=== PATIENT | male | born 1960 ===

== ENCOUNTER 2018-03-03 15:46 | Observation (INO) | payer BC ==
[2018-03-03] MEDS ORDERED: Sodium Chloride 0.9% 1,000 ML IV ONE ×2 (16:41→20:30)
[2018-03-03] MEDS ORDERED: Sodium Chloride 0.9% 1,000 ML ONE ×2 (16:50→20:33)
[2018-03-03 17:10] LABS: BASO % 0.2 % (0.0-2.0); EOS % 0.5 % (0.0-4.0); HEMOGLOBIN 15.6 g/dL (12.0-18.0); LYMPH # 0.8 K/uL (1.0-4.3); LYMPH % 12.9 % (20.0-40.0); MEAN CELL VOLUME 88.7 fL (80.0-94.0); MEAN CORPUSCULAR HEMOGLOBIN 30.4 pg (27.0-31.0); MEAN CORPUSCULAR HGB CONC 34.3 g/dL (33.0-37.0); MEAN PLATELET VOLUME 8.7 fL (7.2-11.7); MONO # 1.4 K/uL (0.0-0.8); MONO % 22.7 % (0.0-10.0); NEUT % 63.7 % (50.0-75.0); NRBC % 0.2 % (0.0-2.0); PLATELET COUNT 352 K/uL (130-400); RBC 5.14 Mil/uL (4.40-5.90); WHITE BLOOD COUNT 6.2 K/uL (4.8-10.8)
[2018-03-03 17:10] LABS: URINE BACTERIA RARE (<OCC); URINE BILIRUBIN NEGATIVE (NEGATIVE); URINE BLOOD 1+ (NEGATIVE); URINE CLARITY Hazy (Clear); URINE COLOR Amber (YELLOW); URINE GLUCOSE (UA) NORMAL (Normal); URINE HYALINE CAST 0-2 /lpf (0-2); URINE LEUKOCYTE ESTERASE NEG Leu/uL (Negative); URINE PROTEIN 2+ mg/dL (NEGATIVE); URINE UROBILINOGEN NORMAL mg/dL (0.2-1.0)
[2018-03-03 17:24] LABS: ALB/GLOB RATIO 1.3 (1.0-2.1); ALBUMIN 4.4 g/dL (3.5-5.0); ALT/SGPT 43 U/L (21-72); AST/SGOT 29 U/L (17-59); BLOOD UREA NITROGEN 24 mg/dL (9-20); GFR AFRICAN-AMERICAN > 60; GFR NON-AFRICAN AMERICAN > 60; LIPASE 52 U/L (23-300)
--- NOTE | 2018-03-03 17:38 | C.PDOC ---
History Of Present Illness 58 year old male presents to ED for evaluation of diffuse abdominal pain associated with vomiting and diarrhea for the last 4 days. Notes vomiting has improved but diarrhea still persists. Denies blood in stool or vomit, dysuria, hematuria, frequency, back pain, fever, chills, chest pain, shortness of breath , headache, dizziness, or any other associated symptoms at this time. Time Seen by Provider: 03/03/18 16:40 Chief Complaint (Nursing): Abdominal Pain History Per: Patient History/Exam Limitations: no limitations Onset/Duration Of Symptoms: Days Current Symptoms Are (Timing): Still Present Location Of Pain/Discomfort: Diffuse Radiation Of Pain To:: None Quality Of Discomfort: "Pain" Associated Symptoms: Nausea, Vomiting, Diarrhea. denies: Loss Of Appetite, Back Pain, Chest Pain, Constipation, Urinary Symptoms Exacerbating Factors: None Alleviating Factors: None Recent travel outside of the [place]: No Additional History Per: Patient Past Medical History Reviewed: Historical Data, Nursing Documentation, Vital Signs Vital Signs: Last Vital Signs Temp 99.5 F 03/03/18 18:23 Pulse 84 03/03/18 18:23 Resp 20 03/03/18 15:58 BP 145/77 03/03/18 18:23 Pulse Ox 96 03/03/18 18:23 Family History: States: Unknown Family Hx - Social History Hx Alcohol Use: No Hx Substance Use: No Review Of Systems Except As Marked, All Systems Reviewed And Found Negative. Constitutional: Negative for: Fever, Chills Cardiovascular: Negative for: Chest Pain, Palpitations Respiratory: Negative for: Shortness of Breath Gastrointestinal: Positive for: Nausea, Vomiting, Abdominal Pain, Diarrhea. Negative for: Melena, Hematochezia, Hematemesis Genitourinary: Negative for: Dysuria, Frequency, Hematuria Musculoskeletal: Negative for: Back Pain Neurological: Negative for: Headache, Dizziness Physical Exam - Physical Exam Appears: Non-toxic, No Acute Distress Skin: Normal Color, Warm, Dry Head: Atraumatic, Normacephalic Eye(s): bilateral: Normal Inspection Oral Mucosa: Moist Neck: Normal ROM, Supple Chest: Symmetrical, No Tenderness Cardiovascular: Rhythm Regular, No Murmur Respiratory: Normal Breath Sounds, No Rales, No Rhonchi, No Wheezing Gastrointestinal/Abdominal: Bowel Sounds, Soft, No Tenderness, No Guarding, No Rebound Back: No CVA Tenderness Extremity: Normal ROM Neurological/Psych: Oriented x3, Normal Speech, Normal Cognition ED Course And Treatment - Laboratory Results Result Diagrams: 03/03/18 16:56 03/03/18 16:56 O2 Sat by Pulse Oximetry: 97 (RA) Pulse Ox Interpretation: Normal Medical Decision Making Medical Decision Making: Plan: * Blood work * Urinalysis * Abd & Pelvis CT * IV fluids Disposition - Disposition Disposition Time: 18:47 Condition: STABLE Forms: [employer] (Czech) - Clinical Impression Clinical Impression: Abdominal pain - PA / QA AUDITOR / Resident Statement MD/DO has reviewed & agrees with the documentation as recorded. - Scribe Statement The provider has reviewed the documentation as recorded by the Scribe KP All medical record entries made by the Scribe were at my direction and personally dictated by me. I have reviewed the chart and agree that the record accurately reflects my personal performance of the history, physical exam, medical decision making, and the department course for this patient. I have also personally directed, reviewed, and agree with the discharge instructions and disposition. Physician Patient Turnover Patient Signed Over To: Eriberto Turcios Handoff Comments: Pending CT scan and disposition
[2018-03-03] MEDS ORDERED: Iodixanol 320 MG/ML 100 ML BOTTLE IV ONE (17:45)
[2018-03-03 19:30] LABS: BANDS 13 % (0-2); LYMPHOCYTE 14 % (20-40); MONOCYTE 25 % (0-10); NEUTROPHIL 48 % (50-75); TOTAL CELLS COUNTED 100
[2018-03-03 19:31] LABS: PLATELET ESTIMATE NORMAL (NORMAL)
[2018-03-03 21:13] LABS: BASO % 0.4 % (0.0-2.0); EOS # 0.1 K/uL (0.0-0.7); EOS % 0.9 % (0.0-4.0); LYMPH # 1.2 K/uL (1.0-4.3); LYMPH % 19.9 % (20.0-40.0); MEAN CELL VOLUME 89.1 fL (80.0-94.0); MEAN CORPUSCULAR HEMOGLOBIN 31.1 pg (27.0-31.0); MEAN CORPUSCULAR HGB CONC 34.9 g/dL (33.0-37.0); MEAN PLATELET VOLUME 8.3 fL (7.2-11.7); MONO # 1.4 K/uL (0.0-0.8); MONO % 23.4 % (0.0-10.0); NEUT # 3.4 K/uL (1.8-7.0); NEUT % 55.4 % (50.0-75.0); NRBC % 0.1 % (0.0-2.0); PLATELET COUNT 332 K/uL (130-400); RED CELL DISTRIBUTION WIDTH 13.7 % (11.5-14.5); WHITE BLOOD COUNT 6.1 K/uL (4.8-10.8)
[2018-03-03 21:26] LABS: ALB/GLOB RATIO 1.3 (1.0-2.1); ALBUMIN 3.6 g/dL (3.5-5.0); ALT/SGPT 39 U/L (21-72); AST/SGOT 18 U/L (17-59); BLOOD UREA NITROGEN 19 mg/dL (9-20); CALCIUM 8.4 mg/dl (8.6-10.4); GFR AFRICAN-AMERICAN > 60; GFR NON-AFRICAN AMERICAN > 60
[2018-03-03] MEDS ORDERED: Potassium Chloride 10 mEq ER Tab PO STA (21:52)
[2018-03-03] MEDS ORDERED: Potassium Chloride 20 mEq ER Tab PO ONE (22:03)
[2018-03-03 22:05] LABS: BANDS 17 % (0-2); LYMPHOCYTE 24 % (20-40); MONOCYTE 16 % (0-10); NEUTROPHIL 43 % (50-75); PLATELET ESTIMATE NORMAL (NORMAL); TOTAL CELLS COUNTED 100
[2018-03-03] MEDS ORDERED: Ciprofloxacin 400mg/200ml D5W 400 MG/200 ML BAG IV STA (22:17)
[2018-03-03] MEDS ORDERED: Ciprofloxacin 400mg/200ml D5W 400 MG/200 ML BAG IVPB ONE (22:57)
[2018-03-04] MEDS: Sodium Chloride 0.9% 1,000 ML IV SCH ×3 (01:45→18:03)
[2018-03-04 04:47] VITALS: RESP 20
--- NOTE | 2018-03-04 08:20 | CT ---
Date of service: 03/03/2018 PROCEDURE: CT Abdomen and Pelvis without intravenous contrast HISTORY: EPIGASTRIC PAIN, VOMITING, DIARRHEA COLITIS COMPARISON: None. TECHNIQUE: Multiple contiguous axial images were performed through the abdomen and pelvis with intravenous contrast. Subsequently, sagittal and coronal reformatted images were obtained. This CT exam was performed using one or more of the following dose reduction techniques: Automated exposure control, adjustment of the mA and/or kV according to patient size, and/or use of iterative reconstruction technique. Radiation dose: Total exam DLP = 708 mGy-cm. This CT exam was performed using one or more of the following dose reduction techniques: Automated exposure control, adjustment of the mA and/or kV according to patient size, and/or use of iterative reconstruction technique. FINDINGS: LOWER THORAX: Unremarkable. LIVER: Fatty infiltration of the liver. Prominent irregular hypodensity/hypoattenuated lesion measuring 3.7 x 2.3 centimeters with peripheral mural nodular enhancing focus anteriorly measuring 1.4 centimeters. Additional 1.7 centimeter enhancing focus/lesion on series 3, image 29 within the right lobe of the liver. Additional questionable hypoechoic lesion with central enhancement measuring 1.3 centimeters on series 3, image 13 at the dome of the right hepatic lobe. These are of uncertain clinical etiology and further evaluation with contrast-enhanced CT or MRI is recommended to better evaluate these lesions. GALLBLADDER AND BILE DUCTS: Contracted gallbladder. PANCREAS: Unremarkable. No gross lesion or ductal dilatation. SPLEEN: Unremarkable. ADRENALS: Unremarkable. No mass. KIDNEYS AND URETERS: Unremarkable. No hydronephrosis. No solid mass. VASCULATURE: Unremarkable. No aortic aneurysm. BOWEL: Liquid stool in the entire colon from the cecum to the rectum suggesting pending diarrhea. Fluid gastric retention. Small bowel wall thickening in the abdomen with air-fluid levels in several small bowel segments. APPENDIX: No findings to suggest acute appendicitis. PERITONEUM: Unremarkable. No free fluid. No free air. LYMPH NODES: Unremarkable. No enlarged lymph nodes. BLADDER: Unremarkable. REPRODUCTIVE: Unremarkable. BONES: Degenerative changes in the spine. Bridging sclerosis of the left SI joint. Productive change at the pubic symphysis. OTHER FINDINGS: None. IMPRESSION: Diffuse enteritis. Liquid stool in the entire colon from the cecum to rectum suggest impending diarrhea. Fatty infiltration of the liver. Prominent irregular hypodensity/hypoattenuated lesion measuring 3.7 x 2.3 centimeters with peripheral mural nodular enhancing focus anteriorly measuring 1.4 centimeters. Additional 1.7 centimeter enhancing focus/lesion on series 3, image 29 within the right lobe of the liver. Additional questionable hypoechoic lesion with central enhancement measuring 1.3 centimeters on series 3, image 13 at the dome of the right hepatic lobe. These are of uncertain clinical etiology and further evaluation with contrast-enhanced CT or MRI is recommended to better evaluate these lesions. These are of uncertain clinical etiology. Considerations may include hemangioma versus abscess versus primary/metastatic mass versus additional etiology. These findings were preliminarily reported at 9:06 p.m. on 03/03/[address] Ignacio Skinner from [facility].
[2018-03-04] MEDS ORDERED: Pneumococcal 23-Valent Vaccine IM ONE (10:00)
[2018-03-04] MEDS: metroNIDAZOLE IV 500 mg/100 ml 500 MG/100 ML BAG IVPB SCH ×2 (11:00→19:47)
[2018-03-04] MEDS: Ciprofloxacin 400mg/200ml D5W 400 MG/200 ML BAG IVPB SCH (11:00)
--- NOTE | 2018-03-04 12:19 | CP.PCM.CON ---
<Moira Clement - Last Filed: 03/04/18 14:19> History of Present Illness - History of Present Illness History of Present Illness: GI Fellow PGY5 Consult Note This is a 58yM with no pmhx of presenting with complaints of diarrhea for 5 days. Pt reports he had an acute onset of diarrhea watery 4-5 times a day for 5 days. Reports subjective fevers and chills but denies any abdominal pain. Pt denies any prior episodes, he came in because he felt very weak. No associated N /V. No sick contacts, travel or recent abx use. He denies hx of hepatitis or liver disease. Per pt's family at bedside pt does drink 24 cans of beer every weekend. No prior colonoscopy or endoscopy. No unintentional weightloss or jaundice. No melena or hematochezia. ROS: A 12pt ROS was negative except as above PmHx: As stated above PsHx:Denies FHx: Neg for colon cancer SHx: Neg for tobacco, drugs, +etoh Past Patient History - Past Medical History & Family History Past Medical History?: Yes - Past Social History Smoking Status: Former Smoker - CARDIAC Hx Cardiac Disorders: No - PULMONARY Hx Respiratory Disorders: No - NEUROLOGICAL Hx Neurological Disorder: No - HEENT Hx HEENT Problems: No Other/Comment: hx left eye sx - RENAL Hx Chronic Kidney Disease: No - ENDOCRINE/METABOLIC Hx Endocrine Disorders: No - HEMATOLOGICAL/ONCOLOGICAL Hx Blood Disorders: No - INTEGUMENTARY Hx Dermatological Problems: No - MUSCULOSKELETAL/RHEUMATOLOGICAL Hx Musculoskeletal Disorders: No - GASTROINTESTINAL Hx Gastrointestinal Disorders: No - GENITOURINARY/GYNECOLOGICAL Hx Genitourinary Disorders: No - PSYCHIATRIC Hx Psychophysiologic Disorder: No Hx Substance Use: No - SURGICAL HISTORY Hx Surgeries: Yes Other/Comment: Left eye - ANESTHESIA Hx Anesthesia: Yes Hx Anesthesia Reactions: No Hx Malignant Hyperthermia: No Has any member of the family had a problem w/ anesthesia?: No Meds Allergies/Adverse Reactions: Allergies Allergy/AdvReac Type Severity Reaction Status Date / Time No Known Allergies Allergy Unverified 03/03/18 15:58 - Medications Medications: Current Medications Famotidine (Pepcid) 20 mg PO DAILY [facility] Last Admin: 03/04/18 09:46 Dose: 20 mg Sodium Chloride (Sodium Chloride 0.9%) 1,000 mls @ 100 mls/hr IV .Q10H [facility] Last Admin: 03/04/18 11:41 Dose: 100 mls/hr Ciprofloxacin (Cipro 400mg/200ml Dsw) 400 mg in 200 mls @ 133 mls/hr IVPB DAILY [facility] PRN Reason: Protocol Last Admin: 03/04/18 11:00 Dose: 133 mls/hr Metronidazole (Flagyl) 500 mg in 100 mls @ 100 mls/hr IVPB Q8H [facility] PRN Reason: Protocol Last Admin: 03/04/18 11:00 Dose: 100 mls/hr Physical Exam - Constitutional Appears: Non-toxic, No Acute Distress - Head Exam Head Exam: ATRAUMATIC, NORMAL INSPECTION, NORMOCEPHALIC - Eye Exam Eye Exam: EOMI, Normal appearance, PERRL Pupil Exam: PERRL - ENT Exam ENT Exam: Mucous Membranes Moist, Normal Exam - Neck Exam Neck exam: Positive for: Normal Inspection. Negative for: Lymphadenopathy - Respiratory Exam Respiratory Exam: Clear to Auscultation Bilateral, NORMAL BREATHING PATTERN - Cardiovascular Exam Cardiovascular Exam: REGULAR RHYTHM, RRR - GI/Abdominal Exam GI & Abdominal Exam: Normal Bowel Sounds, Soft. absent: Distended, Guarding, Organomegaly, Tenderness - Rectal Exam Rectal Exam: NORMAL INSPECTION - Extremities Exam Extremities exam: Positive for: full ROM, normal inspection - Back Exam Back exam: NORMAL INSPECTION - Neurological Exam Neurological exam: Alert, Oriented x3 - Psychiatric Exam Psychiatric exam: Normal Affect, Normal Mood - Skin Skin Exam: Dry, Intact, Normal Color, Warm Results - Vital Signs Recent Vital Signs: Last Vital Signs Temp 98.2 F 03/04/18 08:00 Pulse 68 03/04/18 08:00 Resp 20 03/04/18 08:00 BP 128/76 03/04/18 08:00 Pulse Ox 95 03/04/18 08:00 - Labs Result Diagrams: 03/03/18 21:07 03/03/18 21:07 Labs: Laboratory Results - last 24 hr 03/03/18 03/03/18 03/03/18 16:56 16:56 17:03 WBC 6.2 RBC 5.14 Hgb 15.6 Hct 45.6 MCV 88.7 MCH 30.4 MCHC 34.3 RDW 14.0 Plt Count 352 MPV 8.7 Neut % (Auto) 63.7 Lymph % (Auto) 12.9 L [place] % (Auto) 22.7 H Eos % (Auto) 0.5 Baso % (Auto) 0.2 Neut # (Auto) 4.0 Lymph # (Auto) 0.8 L [place] # (Auto) 1.4 H Eos # (Auto) 0.0 Baso # (Auto) 0.0 Neutrophils % (Manual) 48 L Band Neutrophils % 13 H* Lymphocytes % (Manual) 14 L Monocytes % (Manual) 25 H Platelet Estimate Normal Sodium 137 Potassium 3.1 L Chloride 96 L Carbon Dioxide 28 Anion Gap 16 BUN 24 H Creatinine 0.9 Est GFR ( Amer) > 60 Est GFR (Non-Af Amer) > 60 Random Glucose 147 H Calcium 9.0 Total Bilirubin 0.9 AST 29 ALT 43 Alkaline Phosphatase 54 Total Protein 7.7 Albumin 4.4 Globulin 3.3 Albumin/Globulin Ratio 1.3 Lipase 52 Urine Color Alison Urine Clarity Hazy Urine pH 5.0 Ur Specific Tracy 1.029 Urine Protein 2+ H Urine Glucose (UA) Normal Urine Ketones Trace Urine Blood 1+ H Urine Nitrate Negative Urine Bilirubin Negative Urine Urobilinogen Normal Ur Leukocyte Esterase Neg Urine WBC (Auto) 3 Urine RBC (Auto) 6 H Urine Bacteria Rare Hyaline Casts 0-2 03/03/18 03/03/18 21:07 21:07 WBC 6.1 RBC 4.50 Hgb 14.0 Hct 40.1 MCV 89.1 MCH 31.1 H MCHC 34.9 RDW 13.7 Plt Count 332 MPV 8.3 Neut % (Auto) 55.4 Lymph % (Auto) 19.9 L [place] % (Auto) 23.4 H Eos % (Auto) 0.9 Baso % (Auto) 0.4 Neut # (Auto) 3.4 Lymph # (Auto) 1.2 [place] # (Auto) 1.4 H Eos # (Auto) 0.1 Baso # (Auto) 0.0 Neutrophils % (Manual) 43 L Band Neutrophils % 17 H* Lymphocytes % (Manual) 24 Monocytes % (Manual) 16 H Platelet Estimate Normal Sodium 137 Potassium 2.7 L Chloride 100 Carbon Dioxide 27 Anion Gap 12 BUN 19 Creatinine 0.9 Est GFR ( Amer) > 60 Est GFR (Non-Af Amer) > 60 Random Glucose 117 H Calcium 8.4 L Total Bilirubin 0.5 AST 18 ALT 39 Alkaline Phosphatase 51 Total Protein 6.4 Albumin 3.6 Globulin 2.8 Albumin/Globulin Ratio 1.3 Lipase Urine Color Urine Clarity Urine pH Ur Specific Tracy Urine Protein Urine Glucose (UA) Urine Ketones Urine Blood Urine Nitrate Urine Bilirubin Urine Urobilinogen Ur Leukocyte Esterase Urine WBC (Auto) Urine RBC (Auto) Urine Bacteria Hyaline Casts Assessment & Plan - Assessment and Plan (Free Text) Assessment: This is a 58yM presenting with diarrhea. 1. Diarrhea 2. Enteritis 3. Liver lesions Plan: -Continue supportive care -IV abx per primary team -Stool studies to r/o infectious etiology -CT with liver lesions -Will order CT liver protocol -Will order hepatitis panel, LFTs wnl -Pt will need outpt colonoscopy 6-8weeks -Will continue to follow pt closely <Perry Burton - Last Filed: 03/04/18 18:57> Meds - Medications Medications: Current Medications Famotidine (Pepcid) 20 mg PO DAILY [facility] Last Admin: 03/04/18 09:46 Dose: 20 mg Sodium Chloride (Sodium Chloride 0.9%) 1,000 mls @ 100 mls/hr IV .Q10H [facility] Last Admin: 03/04/18 18:03 Dose: 100 mls/hr Ciprofloxacin (Cipro 400mg/200ml Dsw) 400 mg in 200 mls @ 133 mls/hr IVPB DAILY [facility] PRN Reason: Protocol Last Admin: 03/04/18 11:00 Dose: 133 mls/hr Metronidazole (Flagyl) 500 mg in 100 mls @ 100 mls/hr IVPB Q8H [facility] PRN Reason: Protocol Last Admin: 03/04/18 11:00 Dose: 100 mls/hr Results - Vital Signs Recent Vital Signs: Last Vital Signs Temp 98.7 F 03/04/18 16:20 Pulse 63 03/04/18 16:20 Resp 20 03/04/18 16:20 BP 113/69 03/04/18 16:20 Pulse Ox 93 L 03/04/18 16:20 - Labs Result Diagrams: 03/03/18 21:07 03/03/18 21:07 Labs: Laboratory Results - last 24 hr 03/03/18 03/03/18 03/03/18 16:56 21:07 21:07 WBC 6.1 RBC 4.50 Hgb 14.0 Hct 40.1 MCV 89.1 MCH 31.1 H MCHC 34.9 RDW 13.7 Plt Count 332 MPV 8.3 Neut % (Auto) 55.4 Lymph % (Auto) 19.9 L [place] % (Auto) 23.4 H Eos % (Auto) 0.9 Baso % (Auto) 0.4 Neut # (Auto) 3.4 Lymph # (Auto) 1.2 [place] # (Auto) 1.4 H Eos # (Auto) 0.1 Baso # (Auto) 0.0 Neutrophils % (Manual) 48 L 43 L Band Neutrophils % 13 H* 17 H* Lymphocytes % (Manual) 14 L 24 Monocytes % (Manual) 25 H 16 H Platelet Estimate Normal Normal Sodium 137 Potassium 2.7 L Chloride 100 Carbon Dioxide 27 Anion Gap 12 BUN 19 Creatinine 0.9 Est GFR ( Amer) > 60 Est GFR (Non-Af Amer) > 60 Random Glucose 117 H Calcium 8.4 L Total Bilirubin 0.5 AST 18 ALT 39 Alkaline Phosphatase 51 Total Protein 6.4 Albumin 3.6 Globulin 2.8 Albumin/Globulin Ratio 1.3 C. difficile Ag & Toxin Hepatitis A IgM Ab Hep Bs Antigen Hep B Core IgM Ab Hepatitis C Antibody 03/04/18 03/04/18 13:55 14:18 WBC RBC Hgb Hct MCV MCH MCHC RDW Plt Count MPV Neut % (Auto) Lymph % (Auto) [place] % (Auto) Eos % (Auto) Baso % (Auto) Neut # (Auto) Lymph # (Auto) [place] # (Auto) Eos # (Auto) Baso # (Auto) Neutrophils % (Manual) Band Neutrophils % Lymphocytes % (Manual) Monocytes % (Manual) Platelet Estimate Sodium Potassium Chloride Carbon Dioxide Anion Gap BUN Creatinine Est GFR ( Amer) Est GFR (Non-Af Amer) Random Glucose Calcium Total Bilirubin AST ALT Alkaline Phosphatase Total Protein Albumin Globulin Albumin/Globulin Ratio C. difficile Ag & Toxin Negative Hepatitis A IgM Ab Negative Hep Bs Antigen Negative Hep B Core IgM Ab Negative Hepatitis C Antibody Negative Attending/Attestation - Attestation I have personally seen and examined this patient.: Yes I have fully participated in the care of the patient.: Yes I have reviewed all pertinent clinical information: Yes Notes (Text): 03/04/18 18:57 Chart reviewed. Events noted. Discussed with Dr. Agee and pt's nurse. Agree with the assessment and plan as outlined above.
[2018-03-04 15:01] LABS: HEPATITIS B SURFACE AG Negative (NEGATIVE)
[2018-03-04 15:07] LABS: HEPATITIS A IGM NEGATIVE (NEGATIVE); HEPATITIS B CORE AB NEGATIVE (NEGATIVE)
[2018-03-04 15:19] LABS: HEPATITIS C ANTIBODY NEGATIVE (NEGATIVE)
[2018-03-04] MEDS ORDERED: Potassium Chloride 20 mEq ER Tab PO STA (23:47)
[2018-03-05] MEDS: metroNIDAZOLE IV 500 mg/100 ml 500 MG/100 ML BAG IVPB SCH ×3 (03:35→20:58)
--- NOTE | 2018-03-05 05:32 | HP ---
Copied To: Maryse Rodrigez MD Attending MD: Maryse Rodrigez MD DATE: 03/04/2018 CHIEF COMPLAINT: Abdominal pain, intractable diarrhea. HISTORY OF PRESENT ILLNESS: Mr. Chance is a 58-year-old male with past medical history nonsignificant, came with abdominal pain and diarrhea for five days. The patient reports he had an acute onset of diarrhea about four to five times a day for five days. Reports subjective feverish and chills, but denies any shortness of breath, hematuria or hematochezia. Denies any episode but before. He came in because he felt very weak. No associated nausea or vomiting. No sick contact. No travel or recent antibiotic use. He denies history of hepatitis or liver disorder. The patient drinks 24 cans of beer every weekend. No prior GI followup. No melena, hematuria, or hematochezia. PAST MEDICAL HISTORY: Left eye surgery. ALLERGIES: THE PATIENT IS NOT ALLERGIC TO ANY MEDICATION. HOME MEDICATIONS: Pepcid, sodium chloride, ciprofloxacin, metronidazole. PHYSICAL EXAMINATION: VITAL SIGNS: Temperature 98.2, pulse 83, respiratory rate 20, blood pressure 120/76, pulse oximetry 95%. HEENT: Head is normocephalic and atraumatic. Eyes PERRLA. Extraocular muscles intact. Conjunctivae clear. Nose patent. Mucous membranes moist. NECK: Supple. No carotid bruits, JVD, or thyromegaly. CHEST: Bilaterally symmetrical. HEART: S1 and S2 positive. LUNGS: Clear to auscultation. ABDOMEN: Soft. Bowel sounds present. No organomegaly. EXTREMITIES: No edema. No cyanosis. NEUROLOGIC: The patient is awake, alert. Moving all four extremities. No focal deficits. LABORATORY DATA: White blood cells 6.1, hemoglobin 14, hematocrit 40.1, platelet 332. Sodium 137, potassium 2.7, BUN 19, creatinine 0.9, glucose 117. ASSESSMENT AND PLAN: Mr. Robson Dale is a 58-year-old male with hypokalemia, replaced. Came in with intractable diarrhea, rule out enteritis, rule out diverticulitis, liver lesion. Continue antibiotics. Intravenous fluids. Getting liquid food. Started Flagyl and ciprofloxacin. Gastroenterology is on the case. Agree with our treatment. Seen by . The patient has a history of smoking, now he quit. Repeat laboratories. Send stool for Clostridium difficile toxin colitis. We will follow up. Maryse Rodrigez MD
[2018-03-05] MEDS: Sodium Chloride 0.9% 1,000 ML IV SCH ×3 (06:06→21:20)
--- NOTE | 2018-03-05 08:04 | CP.PCM.PN ---
<Grant Hagen - Last Filed: 03/05/18 15:14> Subjective - Date & Time of Evaluation Date of Evaluation: 03/05/18 Time of Evaluation: 07:05 - Subjective Subjective: PGY-4 GI Fellow Prog Note Pt lying in bed when seen this AM. He thinks BMs have slowed and become somewhat more solid, with 2 BMs since midnight. Denied N/V, F/C. 5 point ROS negative other than stated above. Objective - Vital Signs/Intake and Output Vital Signs (last 24 hours): Temp Pulse Resp BP Pulse Ox 98.2 F 60 20 113/69 96 03/05/18 00:00 03/05/18 00:00 03/05/18 00:00 03/05/18 00:00 03/05/18 01:39 Intake and Output: 03/05/18 03/05/18 06:59 18:59 Intake Total 1000 1040 Output Total 1 Balance 999 1040 - Medications Medications: Current Medications Famotidine (Pepcid) 20 mg PO DAILY [facility] Last Admin: 03/04/18 09:46 Dose: 20 mg Sodium Chloride (Sodium Chloride 0.9%) 1,000 mls @ 100 mls/hr IV .Q10H [facility] Last Admin: 03/05/18 07:35 Dose: Not Given Ciprofloxacin (Cipro 400mg/200ml Dsw) 400 mg in 200 mls @ 133 mls/hr IVPB DAILY [facility] PRN Reason: Protocol Last Admin: 03/04/18 11:00 Dose: 133 mls/hr Metronidazole (Flagyl) 500 mg in 100 mls @ 100 mls/hr IVPB Q8H [facility] PRN Reason: Protocol Last Admin: 03/05/18 03:35 Dose: 100 mls/hr - Labs Labs: 03/03/18 21:07 03/03/18 21:07 - Constitutional Appears: Well, Non-toxic, No Acute Distress - Eye Exam Eye Exam: EOMI. absent: Conjunctival injection, Scleral icterus - ENT Exam ENT Exam: Mucous Membranes Moist, Normal External Ear Exam. absent: Mucous Membranes Dry - Respiratory Exam Respiratory Exam: Clear to Ausculation Bilateral, NORMAL BREATHING PATTERN. absent: Accessory Muscle Use, Wheezes - Cardiovascular Exam Cardiovascular Exam: REGULAR RHYTHM, RRR. absent: Bradycardia, Tachycardia - GI/Abdominal Exam GI & Abdominal Exam: Soft, Normal Bowel Sounds. absent: Bruit, Distended, Firm , Guarding, Rigid, Tenderness, Diminished Bowel Sounds, Hernia, Hyperactive Bowel Sounds, Pulsatile Mass, Rebound Assessment and Plan - Assessment and Plan (Free Text) Assessment: 58 yo Hisp Male presenting with diarrhea, found to have liver lesions on CT. # Acute Diarrhea: Over last week. Watery. No previous endoscopies. Suspect related to viral enteritis. C diff negative. # Liver lesions: Seen on IV contrasted CT on admission. Unclear etiology. Mets vs abscess vs hemangiomas vs ???. Needs OP CSPY. Plan: -Continue supportive care -IV abx per primary team (cipro + metronidazole) -Stool studies to r/o infectious etiology (c diff negative) -CT with liver lesions -> CT liver protocol ordered, read pending -Viral Hepatitis panel negative -Pt will need outpt colonoscopy 6-8weeks -Will continue to follow Pt seen and examined with Dr. Hart <Too Hart - Last Filed: 03/05/18 15:42> Objective - Vital Signs/Intake and Output Vital Signs (last 24 hours): Temp Pulse Resp BP Pulse Ox 98.6 F 71 20 155/65 H 96 03/05/18 08:08 03/05/18 08:08 03/05/18 08:08 03/05/18 08:08 03/05/18 12:00 Intake and Output: 03/05/18 03/05/18 06:59 18:59 Intake Total 1000 1040 Output Total 1 Balance 999 1040 - Medications Medications: Current Medications Famotidine (Pepcid) 20 mg PO DAILY [facility] Last Admin: 03/05/18 09:04 Dose: 20 mg Sodium Chloride (Sodium Chloride 0.9%) 1,000 mls @ 100 mls/hr IV .Q10H [facility] Last Admin: 03/05/18 07:35 Dose: Not Given - Labs Labs: 03/05/18 07:55 03/05/18 07:55 Attending/Attestation - Attestation I have personally seen and examined this patient.: Yes I have fully participated in the care of the patient.: Yes I have reviewed all pertinent clinical information, including history, physical exam and plan: Yes Notes (Text): 03/05/18 15:40 I have seen and examined patient with GI fellow. No acute events overnight, he is seen resting in bed comfortably. He denies abdominal pain, nausea, vomiting , fever/chills. He had two soft bowel movements today, tolerating PO liquids without difficulty. Review of vitals from today are normal. Diarrhea - resolving Liver lesions - CT imaging reviewed by me consistent with hemangiomas, therefore no further investigation required. Viral hepatitis panel negative. - Continue with antibiotic therapy - Advance diet as tolerated - Follow up stool studies - Patient will benefit from elective outpatient colonoscopy following resolution of acute symptoms. Will continue to monitor patient clinical course.
[2018-03-05 08:16] LABS: BLOOD UREA NITROGEN 8 mg/dL (9-20); CALCIUM 8.3 mg/dl (8.6-10.4); GFR AFRICAN-AMERICAN > 60; GFR NON-AFRICAN AMERICAN > 60
[2018-03-05 08:17] LABS: IRON 60 ug/dL (49-181)
[2018-03-05 08:18] LABS: HEMOGLOBIN 13.8 g/dL (12.0-18.0); MEAN CELL VOLUME 88.9 fL (80.0-94.0); MEAN CORPUSCULAR HEMOGLOBIN 30.6 pg (27.0-31.0); MEAN CORPUSCULAR HGB CONC 34.5 g/dL (33.0-37.0); MEAN PLATELET VOLUME 8.3 fL (7.2-11.7); RBC 4.49 Mil/uL (4.40-5.90); RED CELL DISTRIBUTION WIDTH 13.9 % (11.5-14.5)
[2018-03-05 08:43] LABS: % IRON SATURATION 30 (20-55); TOTAL IRON BINDING CAPACITY 197 ug/dL (250-450)
[2018-03-05 09:21] LABS: FOLATE 13.3 ng/mL
[2018-03-05] MEDS ORDERED: Iodixanol 320 MG/ML 100 ML BOTTLE IV ONE (09:32)
[2018-03-05] MEDS: Ciprofloxacin 400mg/200ml D5W 400 MG/200 ML BAG IVPB SCH ×2 (09:55→22:19)
--- NOTE | 2018-03-05 15:35 | CT ---
Date of service: 03/05/[address] Indication: Liver lesions Technique: Contiguous axial images of the abdomen and pelvis without & with IV contrast utilizing liver protocol. Coronal and Sagittal reformats generated and reviewed. This CT exam was performed using 1 or more of the following dose reduction techniques: Automated exposure control, adjustment of the MAA and/or kV according to patient size, and/or use of iterative reconstruction technique. Contrast: 100 cc Visipaque IV. Radiation dose: Total exam DLP = 1433.41 MGy-cm. Comparison: CT abdomen and pelvis with IV contrast performed 03/03/18 Findings: Visualized portions of the heart appear within normal limits of size. There is no visible consolidation, pleural effusion, or pneumothorax. Hypoattenuation of the liver consistent with hepatic steatosis. Two hepatic lesions are identified measuring approximately 2.2 cm at the hepatic dome and 4.0 cm in the right hepatic lobe. Both nodules demonstrate increasing nodular peripheral enhancement with centripetal filling of the lesion on venous and delayed phases ; appear consistent with hemangiomas. The liver, spleen, kidneys, pancreas, adrenal glands, and gallbladder appear unremarkable. The stomach is nondistended. The bowel loops appear within normal limits of caliber without evidence of intestinal obstruction. Fluid within the imaged upper large and small bowel suggest enteritis/diarrheal illness. There is no definite free air. Degenerative changes of the spine. Impression: Hepatic steatosis. Two hepatic lesions as described above appear consistent with hemangiomas. Fluid within the imaged upper bowel suggest enteritis/diarrheal illness.
[2018-03-06] MEDS: metroNIDAZOLE IV 500 mg/100 ml 500 MG/100 ML BAG IVPB SCH ×2 (03:34→12:30)
[2018-03-06] MEDS: Sodium Chloride 0.9% 1,000 ML IV SCH ×2 (04:09→13:51)
[2018-03-06 08:11] VITALS: BP 126/79; PULSE 80; TEMP 98.5; O2SAT 97
--- NOTE | 2018-03-06 08:55 | CP.PCM.PN ---
<Grant Hagen - Last Filed: 03/06/18 08:51> Subjective - Date & Time of Evaluation Date of Evaluation: 03/06/18 Time of Evaluation: 07:10 - Subjective Subjective: PGY-4 GI Fellow Prog Note Pt lying in bed when seen this AM. States only 1 semi formed BM overnight. Tolerated diet w/o N/V or abd pain. 5 point ROS negative other than stated above Objective - Vital Signs/Intake and Output Vital Signs (last 24 hours): Temp Pulse Resp BP Pulse Ox 98.5 F 80 20 126/79 97 03/06/18 08:10 03/06/18 08:10 03/06/18 08:10 03/06/18 08:10 03/06/18 08:10 Intake and Output: 03/06/18 03/06/18 06:59 18:59 Intake Total 1800 Balance 1800 - Medications Medications: Current Medications Famotidine (Pepcid) 20 mg PO DAILY [facility] Last Admin: 03/05/18 09:04 Dose: 20 mg Sodium Chloride (Sodium Chloride 0.9%) 1,000 mls @ 100 mls/hr IV .Q10H [facility] Last Admin: 03/06/18 04:09 Dose: Not Given Ciprofloxacin (Cipro 400mg/200ml Dsw) 400 mg in 200 mls @ 133 mls/hr IVPB Q12H [facility] PRN Reason: Protocol Last Admin: 03/05/18 22:19 Dose: 133 mls/hr Metronidazole (Flagyl) 500 mg in 100 mls @ 100 mls/hr IVPB Q8H [facility] PRN Reason: Protocol Last Admin: 03/06/18 03:34 Dose: 100 mls/hr - Labs Labs: 03/05/18 07:55 03/05/18 07:55 - Constitutional Appears: Well, Non-toxic, No Acute Distress - Head Exam Head Exam: ATRAUMATIC, NORMAL INSPECTION - Eye Exam Eye Exam: EOMI. absent: Conjunctival injection, Scleral icterus - ENT Exam ENT Exam: Mucous Membranes Moist, Normal External Ear Exam. absent: Mucous Membranes Dry - Respiratory Exam Respiratory Exam: Clear to Ausculation Bilateral, NORMAL BREATHING PATTERN. absent: Accessory Muscle Use, Wheezes - Cardiovascular Exam Cardiovascular Exam: REGULAR RHYTHM, RRR - GI/Abdominal Exam GI & Abdominal Exam: Soft, Normal Bowel Sounds. absent: Distended, Firm, Guarding, Rigid, Tenderness, Mass Assessment and Plan - Assessment and Plan (Free Text) Assessment: 58 yo Hisp Male presenting with diarrhea, found to have liver lesions on CT. # Acute Diarrhea: Over last week. Watery. No previous endoscopies. Suspect related to viral enteritis. C diff and O+P negative. # Liver lesions: Seen on IV contrasted CT on admission. Unclear etiology. Liver CT consistent with hemangiomas. Nonetheless, needs OP CSPY for screening. Plan: -Continue supportive care -IV abx per primary team (cipro + metronidazole), would continue for 3 more days as OP -Can use loperamide if desired -Pt will need outpt colonoscopy 6-8weeks Pt seen and examined with Dr. Hart. Pt OK for DC from GI standpoint, will sign off. We are available to return to patient's room to discuss any questions. <Too Hart - Last Filed: 03/06/18 09:10> Objective - Vital Signs/Intake and Output Vital Signs (last 24 hours): Temp Pulse Resp BP Pulse Ox 98.5 F 80 20 126/79 97 03/06/18 08:10 03/06/18 08:10 03/06/18 08:10 03/06/18 08:10 03/06/18 08:10 Intake and Output: 03/06/18 03/06/18 06:59 18:59 Intake Total 1800 Balance 1800 - Medications Medications: Current Medications Famotidine (Pepcid) 20 mg PO DAILY [facility] Last Admin: 03/05/18 09:04 Dose: 20 mg Sodium Chloride (Sodium Chloride 0.9%) 1,000 mls @ 100 mls/hr IV .Q10H [facility] Last Admin: 03/06/18 04:09 Dose: Not Given Ciprofloxacin (Cipro 400mg/200ml Dsw) 400 mg in 200 mls @ 133 mls/hr IVPB Q12H [facility]ERN PRN Reason: Protocol Last Admin: 03/05/18 22:19 Dose: 133 mls/hr Metronidazole (Flagyl) 500 mg in 100 mls @ 100 mls/hr IVPB Q8H [facility] PRN Reason: Protocol Last Admin: 03/06/18 03:34 Dose: 100 mls/hr - Labs Labs: 03/05/18 07:55 03/05/18 07:55 Attending/Attestation - Attestation I have personally seen and examined this patient.: Yes I have fully participated in the care of the patient.: Yes I have reviewed all pertinent clinical information, including history, physical exam and plan: Yes Notes (Text): 03/06/18 09:07 I have seen and examined patient with GI fellow. No acute events overnight, he is seen resting in bed comfortably. He had one bowel movement this morning, more formed in consistency, no blood in stool. He denies abdominal pain, nausea , vomiting, fever/chills. Tolerating PO diet without difficulty. Review of vitals from today are normal. Diarrhea - resolving, likely infectious given clinical presentation Liver lesions - hemangiomas based on dedicated liver CT imaging - no further workup indicated - Diet as tolerated - Would suggest continued antibiotic therapy for 3 additional days - From GI standpoint ok to discharge home with subsequent outpatient follow up. He will need routine colonoscopy which can be arranged as outpatient. Will sign off case, please reconsult as necessary, thank you.
[2018-03-06] MEDS: Ciprofloxacin 400mg/200ml D5W 400 MG/200 ML BAG IVPB SCH (10:04)
[2018-03-06] MEDS ORDERED: Potassium Chloride 20 mEq ER Tab PO ONE (11:40)
--- NOTE | 2018-03-06 16:17 | CP.PCM.PN ---
Subjective - Date & Time of Evaluation Date of Evaluation: 03/06/18 Time of Evaluation: 11:17 - Subjective Subjective: alert, awake, no acute distress, tolerating food. Objective - Vital Signs/Intake and Output Vital Signs (last 24 hours): Temp Pulse Resp BP Pulse Ox 98.5 F 80 20 126/79 97 03/06/18 08:10 03/06/18 08:10 03/06/18 08:10 03/06/18 08:10 03/06/18 08:10 Intake and Output: 03/06/18 03/06/18 06:59 18:59 Intake Total 1800 Balance 1800 - Labs Labs: 03/05/18 07:55 03/05/18 07:55 Assessment and Plan - Assessment and Plan (Free Text) Assessment: Patient admitted with diarrhea, abdominal pain, seen and examined, aert and orientedx3, tolerating diet, no more abdominal pain. Cleared by GI , discussed with DR Rodrigez, plan todischarge home on 3 more days of cipro and flagyl as advised. Advised to follow up with PMD and Gi in 1 week. Advised to avoid alcohol and spicy foods.
--- NOTE | 2018-03-06 21:15 | PN ---
Copied To: Maryse Rodrigez MD Attending MD: Maryse Rodrigez MD DATE: 03/05/2018 SUBJECTIVE: The patient is a 58-year-old male. The patient is looking comfortable, still has diarrhea, but according to the patient, has slowed down. It is becoming more solid. No nausea or vomiting. Abdominal pain is not constant now. No fever. NO chills. No headache. No dizziness. REVIEW OF SYSTEMS: A 12-point review of system is negative except above. PHYSICAL EXAMINATION VITAL SIGNS: Temperature 98.2, pulse 60, respiratory rate 20, blood pressure 113/69, and pulse oximetry 96%. HEENT: Head is normocephalic and atraumatic. Eyes, PERRLA. Extraocular muscles intact. Conjunctivae clear. Nose patent. NECK: Supple. No carotid bruits, JVD, or thyromegaly. CHEST: Bilaterally symmetrical. HEART: S1 and S2 positive. LUNGS: Clear to auscultation. ABDOMEN: Soft. Bowel sounds positive. No organomegaly. EXTREMITIES: No edema. No cyanosis. NEUROLOGIC: The patient is awake and alert. Moving all four extremities. No focal deficits. MEDICATIONS: Pepcid, NS, Cipro, and Flagyl. LABORATORY DATA: White blood cells 6.1, hemoglobin 14, hematocrit 40.1, and platelets 332. Sodium 137, potassium 2.7, BUN 19, creatinine 0.9, and glucose 170. ASSESSMENT AND PLAN: Mr. Robson Dale is a 58-year-old male with hypokalemia, replaced and hyperglycemia. The patient came with intractable diarrhea, abdominal pain, resolving. Liver lesion CT imaging reviewed, consistent with hemangioma. Therefore, no further investigation required. Viral hepatitis panel negative. Continue antibiotics. Advanced diet. . The patient will benefit from elective outpatient colonoscopy following the resolution of acute symptoms. We will continue monitoring the patient's clinical course. CAT scan of the abdomen reviewed. CAT scan of the liver reviewed. The patient has history of left eye surgery. Rule out enteritis and diverticulitis. Gastroenterology is on the case. Repeat labs. Appreciated Dr. Too Hart's input. We will follow. Maryse Rodrigez MD [facility] # [id number]
== END 2018-03-06 14:21 | disposition home or self-care (01) ==
LOC: C.ER 15:46 → C.3T 22:33
PROVIDERS: ADMIT Internal Medicine; ATTEND Internal Medicine
DX: K52.9 Noninfective gastroenteritis and colitis, unspecified (principal); D18.03 Hemangioma of intra-abdominal structures; D72.825 Bandemia; E87.6 Hypokalemia; Z87.891 Personal history of nicotine dependence
CPT/HCPCS: 36415; 74170; 74177; 80048; 80053; 80061; 80074; 81001; 82607; 82746; 83036; 83540; 83550; 83690; 84443; 85025; 85027; 87040; 87045; 87177; 87209; 87230; 87329; 90732; 96361; 96365; 96366; 96368; 96376; 99285; G0009; G0378; J0744; J3480; J7030; Q9967